=== PATIENT | female | born 1990 | race Hispanic/Latino ===

== ENCOUNTER 2021-02-03 05:31 | Inpatient (IN) | payer OTHER, SELFPAY ==
[~2021-02-03] VITALS: Ht 162.6 cm; Wt 76.7 kg
[~2021-02-03 05:31] MED LIST: PREN1TAB50 PO
[2021-02-03 06:29] LABS: APPEARANCE,URINE CLEAR (CLEAR); BILIRUBIN,URINE NEGATIVE (NEGATIVE); COLOR,URINE YELLOW (YELLOW); GLUCOSE, URINE (UA) NEGATIVE (NEGATIVE); KETONES,URINE 5 mg/dL (NEGATIVE); LEUKOCYTE ESTERASE ,URINE NEGATIVE (NEGATIVE); NITRATE,URINE NEGATIVE (NEGATIVE); OCCULT BLOOD,URINE NEGATIVE (NEGATIVE); PROTEIN,URINE NEGATIVE (NEGATIVE); UROBILINOGEN,URINE 0.2 mg/dL (0.2-1.0)
[2021-02-03 06:37] LABS: AMPHET/METH SCREEN,URINE NEGATIVE (NEGATIVE); BARBITURATE SCREEN, URINE NEGATIVE (NEGATIVE); BENZODIAZEPINES SCREEN,URINE NEGATIVE (NEGATIVE); CANNABINOID SCREEN,URINE NEGATIVE (NEGATIVE); COCAINE SCREEN,URINE NEGATIVE (NEGATIVE); OPIATE SCREEN,URINE NEGATIVE (NEGATIVE); PHENCYCLIDINE SCREEN,URINE NEGATIVE (NEGATIVE)
[2021-02-03 06:50] VITALS: BP 102/55
[2021-02-03 07:43] LABS: RBC,URINE 0-1 /HPF (0-1); WBC,URINE 0-1 /HPF (0-1)
[2021-02-03 07:44] LABS: BACTERIA,URINE Rare /HPF (None Seen); MUCUS,URINE Few LPF (None Seen); SQUAMOUS EPITHELIAL CELL,UR Few /HPF (0-2)
[2021-02-03] MEDS ORDERED: LACTATED RINGERS 1000ML 1,000 ML IV PRN (08:15)
[2021-02-03] MEDS ORDERED: AMPICILLIN 2GM+NS 100ML 100 ML IV SCH (08:15)
[2021-02-03 08:37] LABS: MEAN CORPUSCULAR HEMOGLOBIN 31.2 pg (27.0-33.0); MEAN CORPUSCULAR HGB CONC 33.3 g/dL (32.0-36.0); MEAN CORPUSCULAR VOLUME 93.5 fL (79-99); RED BLOOD CELL COUNT(AUTO) 3.85 MIL/uL (4.00-5.50); RED CELL DISTRIBUTION WIDTH 13.2 % (11.0-15.5); WHITE BLOOD COUNT (AUTO) 8.7 K/uL (4.8-10.8)
[2021-02-03 09:16] LABS: RAPID PLASMA REAGIN NONREACTIVE (NONREACTIVE)
[2021-02-03] MEDS ORDERED: OXYTOCIN-LR 20 UNITS/1000 ML 1,000 ML IV SCH ×2 (11:30→16:15)
[2021-02-03] MEDS ORDERED: AMPICILLIN 1GM+NS 50ML 50 ML IV SCH (12:15)
[2021-02-03] MEDS ORDERED: LIDOCAINE HCL 2% 20ML ONE (15:44)
[2021-02-03] MEDS ORDERED: ACETAMINOPHEN-CODEINE 300/30MG TAB PO PRN (16:15)
[2021-02-03] MEDS ORDERED: BENZOCAINE/LANOLIN/ALOE VERA 60 ML AEROSOL TP PRN (16:15)
[2021-02-03] MEDS ORDERED: ACETAMINOPHEN 325 MG TAB PO PRN (16:15)
[2021-02-03] MEDS ORDERED: WITCH HAZEL 1 PAD TP PRN (16:15)
[2021-02-03] MEDS ORDERED: LANOLIN 30GM OINTMENT TP PRN (16:15)
[2021-02-03] MEDS ORDERED: DIPH,PERTUSS(ACELL),TET VAC/PF 0.5 ML VIAL IM PRN (16:15)
[2021-02-03] MEDS ORDERED: MEASLES/MUMPS/RUBELLA VACCINE, LIVE 0.5 ML/VIAL SQ PRN (16:15)
[2021-02-03] MEDS: IBUPROFEN 600 MG TABLET PO PRN (18:18)
[2021-02-03 19:14] VITALS: BP 116/69
[2021-02-03] MEDS: DOCUSATE SODIUM 100 MG CAP PO SCH (21:14)
[2021-02-04 00:16] VITALS: BP 104/71
[2021-02-04 03:28] VITALS: BP 96/56
[2021-02-04 07:42] VITALS: BP 99/57
[2021-02-04 08:14] LABS: HEPATITIS Bs ANTIGEN SCREEN P Negative (Negative)
[2021-02-04] MEDS: DOCUSATE SODIUM 100 MG CAP PO SCH (09:37)
[2021-02-04] MEDS: IBUPROFEN 600 MG TABLET PO PRN (09:38)
[2021-02-04 11:20] VITALS: BP 104/61
[2021-02-04 16:40] VITALS: BP 115/70
== END 2021-02-04 17:00 | disposition home or self-care (01) | DRG 807 ==
LOC: EDH 05:31 → OBSVTOIN 05:32 → LDH 05:32 → WSH 17:00
PROVIDERS: ADMIT Specialist; ATTEND Specialist
PROC: 10E0XZZ Delivery of Products of Conception, External Approach (ICD-10-PCS; principal; 2021-02-03)
PROC: 0HQ9XZZ Repair Perineum Skin, External Approach (ICD-10-PCS; 2021-02-03)
PROC: 10907ZC Drainage of Amniotic Fluid, Therapeutic from Products of Conception, Via Natural or Artificial Opening (ICD-10-PCS; 2021-02-03)
PROC: 3E0134Z Introduction of Serum, Toxoid and Vaccine into Subcutaneous Tissue, Percutaneous Approach (ICD-10-PCS; 2021-02-03)
PROC: 3E0234Z Introduction of Serum, Toxoid and Vaccine into Muscle, Percutaneous Approach (ICD-10-PCS; 2021-02-03)
DX: O70.0 First degree perineal laceration during delivery (principal); Z37.0 Single live birth; Z3A.37 37 weeks gestation of pregnancy; Z23 Encounter for immunization
CPT/HCPCS: 36415; 80305; 81001; 85027; 86592; 86701; 86850; 86900; 86901; 87340; 87390; 90707; 90715; G0378; J0290; J3490; J7120